=== PATIENT | female | born 1975 | race Caucasian/White ===

== ENCOUNTER 2017-02-07 16:25 | Outpatient (CLI) | payer BC | END 2017-02-07 18:27 | disposition home or self-care (01) | LOC: SUS 16:25 | PROVIDERS: ATTEND Obstetrics & Gynecology | DX: Z32.01 Encounter for pregnancy test, result positive (principal); N85.2 Hypertrophy of uterus; N93.9 Abnormal uterine and vaginal bleeding, unspecified | CPT/HCPCS: 76817 ==